=== PATIENT | male | born 1980 | race Caucasian/White ===

== ENCOUNTER 2020-06-16 16:57 | Emergency (ER) | payer SELFPAY ==
[2020-06-16 17:46] VITALS: BP 132/84; PULSE 88; RESP 18; TEMP 37; O2SAT 97; BMI 27.1
[2020-06-16 19:22] VITALS: BP 142/91; PULSE 97; RESP 18; TEMP 36.8; O2SAT 97
--- NOTE | 2020-06-16 20:29 | ED.BACK ---
HPI - Back Pain/Injury General Chief Complaint: Back Pain/Injury Stated Complaint: Fall at work 06/15 Time Seen by Provider: 06/16/20 19:46 Source: patient Mode of arrival: ambulatory History of Present Illness HPI Narrative: 40-year-old male with a past medical history of hypertension, GERD, insomnia, lumbar degenerative disc disease, hyperlipidemia, presenting to the ED complaining of low back pain radiating down right lower extremity since yesterday s/p heavy lifting at work. Denies direct trauma/falls. Reports tingling down right leg. Also reports dysuria. Denies weakness, urinary incontinence, retention, fever, chills, penile discharge, hematuria MD elicited complaint: back pain and back injury Related Data Home Medications Medication Instructions Recorded Confirmed atorvastatin 20 mg tablet 20 mg PO BEDTIME 04/12/20 04/12/20 fenofibrate 54 mg tablet 54 mg PO DAILY 04/12/20 04/12/20 hydrochlorothiazide 25 mg tablet 25 mg PO DAILY 04/12/20 04/12/20 omeprazole 20 mg capsule,delayed 20 mg PO DAILY 04/12/20 04/12/20 release trazodone 50 mg tablet 50 mg PO BEDTIME PRN 04/12/20 04/12/20 Previous Rx's Medication Instructions Recorded cyclobenzaprine 10 mg tablet 10 mg PO TID PRN 30 Days #90 tab 04/12/20 tramadol 50 mg tablet 50 mg PO BID PRN 30 Days #60 tab 04/12/20 acetaminophen [Tylenol Extra 500 mg PO Q6H PRN #20 tab 06/16/20 Strength] cefuroxime axetil 250 mg PO BID 7 Days #14 tab 06/16/20 cyclobenzaprine 5 mg PO Q8H PRN 5 Days #14 tab 06/16/20 lidocaine [Lidoderm] 1 patch TOPICAL DAILY PRN #30 ea 06/16/20 MDD remove after 12 hours naproxen 500 mg PO BID PRN 10 Days #20 tab 06/16/20 tramadol 50 mg PO Q8H PRN 3 Days #9 tab 06/16/20 Allergies Allergy/AdvReac Type Severity Reaction Status Date / Time No Known Allergies Allergy Verified 04/12/20 12:54 [No Known Allergies*] Review of Systems Review of Systems: Constitutional: No Fever, No Chills Gastrointestinal: No Nausea, No Vomiting, No Abdominal pain Genitourinary: No Urinary Incontinence/retention Musculoskeletal: +back pain, No Myalgias, No Joint Swelling Skin: No Skin Lesions, No rash Neuro: No Weakness, No Numbness, No Paresthesias Yes all other systems are reviewed and are negative FORMERLY [facility], 1928–1983 Past Medical History Attestation statement: The following information was validated with the patient. Medical History (Updated 06/16/20 @ 22:16 by JEMIMA Munoz) Essential hypertension GERD (gastroesophageal reflux disease) Insomnia Lumbar degenerative disc disease Mixed hyperlipidemia Surgical History (Updated 04/05/20 @ 14:18 by LORENA Mcneil) No pertinent past surgical history Family History Family History (Updated 04/05/20 @ 14:19 by LORENA Mcneil) Father Hypertension Mother Medical history unknown Maternal Grandmother Breast cancer Social History Social History Alcohol intake: current Alcohol intake frequency: holidays/special occasions only Smoking Status: Current every day smoker Cigarettes Per Day: 3 Smoked in Last 30 Days: Yes Use of substances other than those prescribed or required for medical reasons: No Advance Directives: No Physical Exam Vital Signs: Vital Signs: Last Vital Signs Temp 98.0 F 06/16/20 21:53 Pulse 73 06/16/20 21:53 Resp 18 06/16/20 21:53 BP 118/81 06/16/20 21:53 Pulse Ox 96 06/16/20 21:53 Body Mass Index 27.1 Const: General: cooperative and healthy appearing Orientation/consciousness: patient oriented x3 Limitations: no limitations HENMT: Head: Yes normal to inspection Ears: hearing grossly normal bilaterally General nose exam: Normal external nose present Face and sinus: Yes normal facial exam Eyes: General: appearance normal, both eyes and all related structures EOM: EOMs intact bilaterally Neck: Other: No midline cervical spinous tenderness Neck: Yes normal visual inspection Resp: Effort & Inspection: normal respiratory effort Cardio: Rate: regular rate GI: Inspection: Yes normal to inspection Back/Spine/Pelvis: Other: No midline thoracic/lumbar spinous tenderness. + right sign in lower lumbar MSK tenderness and palpable muscle spasm Skin: Rashes: no rashes Wounds: no wounds Neuro: Other: Strength intact throughout. No saddle anesthesia General: patient oriented x3, gait normal, tone normal and moves all extremities Gait exam (Neuro): Normal gait present Motor exam (neuro): 5/5 motor strength present throughout Extrem: General: Yes normal to inspection Course Course Course Narrative: -UA with trace leuks, and wbc's in clumps noted > discussed with patient, reports no concern for STI, denies discharge, sexually active with only. Will obtain CT /NG, however not treat and wait for results MDM - Back Pain/Injury MDM Narrative Medical decision making narrative: On exam VSS, NAD, no midline spinous tenderness throughout, no red flag symptoms. No saddle anesthesia. Likely MSK pain. Low concern for cauda equina/cord compression or fracture Lab Data Attestation: I reviewed the patient's lab results. Labs: Lab Results 06/16/20 Range/Units 21:07 Urine Color YELLOW Urine Appearance TURBID Urine pH 5.5 (5.0-8.0) Ur Specific Jonancy >= 1.030 H (1.005-1.025) Urine Protein NEG (NEG-TRACE) MG/DL Urine Glucose (UA) NEG (NEG) MG/DL Urine Ketones NEG (NEG) MG/DL Urine Blood NEG (NEG) Urine Nitrite NEG (NEG) Ur Leukocyte Esterase TRACE H (NEG) Urine RBC 0 (0) /HPF Urine WBC 1-4 (0-4) /HPF Urine WBC Clumps NOTED Ur Squamous Epith Cells TRACE /LPF Uric Acid Crystals TRACE /LPF Amorphous Sediment 3+ /LPF Urine Bacteria NONE /LPF Discharge Plan Discharge Clinical Impression: Strain of lumbar region, Acute UTI Patient Disposition: Home, Self-Care Instructions: Urinary Tract Infection in Men (ED), Back Pain (ED) Additional Instructions: Your pain is likely musculoskeletal Flexeril is a muscle relaxer, take at night as it makes you drowsy, do not drive, drink alcohol, or operate machinery while taking it Naproxen as an anti-inflammatory / pain medication, take with food Lidoderm patches are numbing patches, apply to painful area In addition take Tylenol at home Tramadol opiate pain medication, take only when pain is severe for next 3 days Ceftin as an antibiotic, take for your urinary tract infection If symptoms persist or worsen, pain becomes unbearable, you developed urinary retention or incontinence, or weakness return to the ED Es probable que ma dolor sea musculoesquel?chalra Flexeril es un relajante muscular, t?pollard por la noche ya que le produce somnolencia, no conduzca, no janelle alcohol ni maneje maquinaria mientras lo jennifer. Naproxeno venancio medicamento antiinflamatorio / analg?sico, nancy con alimentos. Los parches de Lidoderm son parches adormecedores, se aplican al ?pete dolorida Adem?s, tome Tylenol en casa. 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 retenci?n urinaria o incontinencia, o debilidad regrese al servicio de urgencias Prescriptions: New acetaminophen [Tylenol Extra Strength] 500 mg tablet 500 mg PO Q6H PRN (Reason: pain or fever) Qty: 20 RF: 0 lidocaine [Lidoderm] 5 % adhesive patch,medicated 1 patch topical DAILY MDD remove after 12 hours PRN (Reason: pain) Qty: 30 RF: 0 naproxen 500 mg tablet 500 mg PO BID PRN (Reason: pain) 10 Days Qty: 20 RF: 0 cyclobenzaprine 5 mg tablet 5 mg PO Q8H PRN (Reason: pain (scale score 7-10)) 5 Days Qty: 14 RF: 0 tramadol 50 mg tablet 50 mg PO Q8H PRN (Reason: pain) 3 Days Qty: 9 RF: 0 cefuroxime axetil 250 mg tablet 250 mg PO BID 7 Days Qty: 14 RF: 0 No Action hydrochlorothiazide 25 mg tablet 25 mg PO DAILY RF: 0 omeprazole 20 mg capsule,delayed release(DR/EC) 20 mg PO DAILY RF: 0 trazodone 50 mg tablet 50 mg PO BEDTIME PRNRF: 0 atorvastatin 20 mg tablet 20 mg PO BEDTIME RF: 0 fenofibrate 54 mg tablet 54 mg PO DAILY RF: 0 tramadol 50 mg tablet 50 mg PO BID PRN (Reason: pain) 30 Days Qty: 60 RF: 0 cyclobenzaprine 10 mg tablet 10 mg PO TID PRN (Reason: muscle spasm) 30 Days Qty: 90 RF: 3 Referrals: Tamia Bateman MD [Primary Care Provider] - 3 days Print Language: Citizen Of [place]
[2020-06-16 20:53] VITALS: BP 121/92; PULSE 87; RESP 18; TEMP 36.5; O2SAT 96
[2020-06-16 21:20] LABS: Glucose Urine UA NEG (NEG); Leukocyte Esterase Urine TRACE (NEG); Nitrite Urine NEG (NEG); PH 5.5 (5.0-8.0); Specific Gravity - Urine >= 1.030 (1.005-1.025); UACC Culture Trigger YES; Urine Blood NEG (NEG); Urine Ketones NEG (NEG); Urine Protein NEG (NEG-TRACE)
[2020-06-16 21:21] LABS: Appearance Urine TURBID; Color Urine YELLOW
[2020-06-16] MEDS: Lidocaine 4 % Patch ADH..PATCH 1 PATCH TRANSDERMA (21:26)
[2020-06-16] MEDS: Cyclobenzaprine HCl 10 MG TABLET PO (21:27)
[2020-06-16] MEDS: traMADoL HCL 50 MG TABLET PO (21:27)
[2020-06-16] MEDS: Acetaminophen 325 MG TABLET 650 MG PO (21:28)
[2020-06-16] MEDS: NaPROXEN 500 MG TABLET PO (21:28)
--- NOTE | 2020-06-16 21:35 | PC.NURSE ---
REQUESTED AND GIVEN APPLE JUICE WITH MEDICATIONS. ENCOURAGED TO PROVIDE URINE SPECIMEN, BUT PATIENT STATES THAT HE IS UNABLE TO PROVIDE A SPECIMEN AT THIS TIME. CALL BISHOP WITHIN REACH, INSTRUCTED TO CALL WHEN ABLE TO PROVIDE SPECIMEN.
[2020-06-16 21:48] LABS: Amorphous Sediment Urine 3+ /LPF; RBC Urine 0 /HPF (0); Squamous Epithelial Cell Urine TRACE /LPF; Uric Acid Crystals Urine TRACE /LPF; WBC Clumps Urine NOTED
[2020-06-16 21:53] VITALS: BP 118/81; PULSE 73; RESP 18; TEMP 36.7; O2SAT 96
[2020-06-18 11:32] LABS: C. trachomatis RNA TMA NOT DETECTED (NOT DETECTED); N. gonorrhoeae RNA TMA NOT DETECTED (NOT DETECTED)
== END 2020-06-16 23:11 | disposition home or self-care (01) ==
PROVIDERS: Physician Assistant; Emergency Provider Emergency Medicine; PCP Internal Medicine
DX: S39.012A Strain of muscle, fascia and tendon of lower back, initial encounter (principal); N39.0 Urinary tract infection, site not specified; X50.0XXA Overexertion from strenuous movement or load, initial encounter; X50.3XXA Overexertion from repetitive movements, initial encounter; X50.9XXA Other and unspecified overexertion or strenuous movements or postures, initial encounter; Y93.9 Activity, unspecified; Y92.9 Unspecified place or not applicable; Y99.0 Civilian activity done for income or pay; F17.200 Nicotine dependence, unspecified, uncomplicated; Z71.6 Tobacco abuse counseling; Z79.899 Other long term (current) drug therapy
CPT/HCPCS: 36415; 81001; 81003; 87086; 87491; 87591; 99284

== ENCOUNTER 2020-08-15 14:27 | Outpatient (REF) | payer OTHER, SELFPAY ==
[2020-08-15 16:17] LABS: COVID-19 Test Negative (Negative)
== END 2020-08-15 14:28 | disposition home or self-care (01) ==
LOC: HO.LAB 14:27
PROVIDERS: Visit Provider Internal Medicine
DX: Z20.822 Contact with and (suspected) exposure to COVID-19 (principal)
CPT/HCPCS: 36415; 87635; C9803

== ENCOUNTER 2020-12-05 15:39 | Emergency (ER) | payer MEDICAID, SELFPAY | END 2020-12-05 17:50 | disposition left against medical advice (07) | PROVIDERS: Emergency Provider Emergency Medicine; PCP Internal Medicine | DX: J02.9 Acute pharyngitis, unspecified (principal) ==

== ENCOUNTER 2020-12-19 15:45 | Outpatient (REF) | payer MEDICAID, SELFPAY ==
--- NOTE | ~2020-12-19 | XR_ITS ---
EXAMINATION: XR LUMBOSACRAL SPINE WITH OBLIQUES CLINICAL INFORMATION: Lower back pain. COMPARISON: Lumbar spine radiographs dated 10/05/2019. TECHNIQUE: AP, lateral, coned down, bilateral oblique views of the lumbar spine. FINDINGS: Normal vertebral body alignment. The lumbar lordosis is maintained. No acute fracture or subluxation. No loss of vertebral body height. Loss of intervertebral disc height with endplate osteophytes at L4-L5 and L5-S1. Additional multilevel anterior endplate osteophytes. Bilateral facet arthropathy at L5-S1. No lytic or blastic osseous lesion. No abnormal soft tissue calcification. XR/XR lumbar spine 4V min IMPRESSION: Multilevel degenerative disc disease, most prominent at L4-L5 and L5-S1, progressed when compared to the prior examination. New/increased bilateral facet arthropathy at L5-S1.
== END 2020-12-19 15:46 | disposition home or self-care (01) ==
LOC: HO.XRAY 15:45
PROVIDERS: PCP Nurse Practitioner Family; Visit Provider Nurse Practitioner Family
DX: M54.5 Low back pain (principal)
CPT/HCPCS: 72110

== ENCOUNTER 2021-01-19 10:50 | Outpatient (REF) | payer MEDICAID, SELFPAY ==
--- NOTE | ~2021-01-19 | XR_ITS ---
EXAMINATION: XR KNEE, RIGHT CLINICAL INFORMATION: Right knee pain. COMPARISON: None. TECHNIQUE: 4 views of the right knee. FINDINGS: Mild medial compartment joint space narrowing. Tiny medial and lateral compartment marginal osteophytes. No osseous erosion. No fracture or dislocation. No significant joint effusion. No abnormal soft tissue calcification. XR/XR knee RT 4V IMPRESSION: Mild medial and minimal lateral compartment arthrosis.
== END 2021-01-19 10:51 | disposition home or self-care (01) ==
LOC: HO.XRAY 10:50
PROVIDERS: Absent Provider Nurse Practitioner Family; PCP Nurse Practitioner Family; Visit Provider Emergency Medicine
DX: S89.91XD Unspecified injury of right lower leg, subsequent encounter (principal)
CPT/HCPCS: 73564

== ENCOUNTER → 2021-02-21 13:38 | Outpatient (BNVA) | payer MEDICAID, SELFPAY | PROVIDERS: PCP Nurse Practitioner Family; Visit Provider Physician Assistant | DX: M51.36 Other intervertebral disc degeneration, lumbar region (principal) | CPT/HCPCS: 99202 ==

== ENCOUNTER 2021-02-24 11:00 | Outpatient (RCR) | payer MEDICAID, SELFPAY | END 2021-08-14 11:45 | disposition home or self-care (01) | LOC: HO.PTCHIC 11:00 | PROVIDERS: PCP Internal Medicine Geriatric Medicine; Visit Provider Nurse Practitioner Family | DX: M54.5 Low back pain (principal) | CPT/HCPCS: 97014; 97110; 97140; 97161 ==

== ENCOUNTER → 2021-03-24 12:43 | Outpatient (REF) | payer MEDICAID, SELFPAY ==
--- NOTE | 2021-03-24 13:00 | CA_ITS ---
Transthoracic Echocardiogram Patient (Last, First, Middle): Joanne Bright A Gender: Male Date of : 1980 Age: 40 Procedure Date: 03/24/2021 Procedure Type: Transthoracic Echocardiogram Location: OP Height: 182.88 cm Weight: 97.52 kg BSA: 2.20 m2 Heart Rate: bpm BP: 140 / 90 mmHg Product Assembler: JOEY Referring MD: Luda Nair Symptoms: I38 ENDOCARDITIS Conclusions: - Normal study. Findings Left Ventricle Normal left ventricular size, thickness, systolic function, and wall motion. The visually estimated ejection fraction is between 55-60%. Diastolic function is normal for age. Right Ventricle Normal right ventricular cavity size and systolic function. Atria Both atria are normal in size. Aortic Valve Normal aortic valve structure and function. There is no aortic valve stenosis. There is no aortic valve regurgitation. Mitral Valve Normal mitral valve structure and function. There is no mitral valve regurgitation. There is no mitral valve stenosis. Pulmonic Valve The pulmonic valve is likely normal. Tricuspid Valve Normal tricuspid valve structure and function. There is trace tricuspid valve regurgitation. Normal right atrial pressure. There is no evidence of pulmonary hypertension. Great Vessels All visible segments of the aorta are normal in size. The visualized portions of the pulmonary artery and branches are normal. Venous The inferior vena cava is normal in size. Pericardium/Pleural There is no evidence of pericardial effusion. Prior Study Comparison No prior study available for comparison. Measurements 2D Linear Measurements IVSd: 0.93 0.6-0.9/0.6-1.0 cm LVIDd: 5.37 3.9-5.3/4.2-5.9 cm LVIDd Index: 2.44 2.4-3.2/2.2-3.1 cm/m2 LVIDs: 3.33 2.0-3.6 cm LVPWd: 0.89 0.7-1.1 cm Ao Root: 3.20 2.1-3.5 cm LA Diam: 3.30 2.7-3.8/3.0-4.0 cm LAIDs Index: 1.50 1.5-2.3 cm/m2 LV Mass: 224.87 67-162/88-224 g LV Mass Index: 102.21 43-95/49-115 g/m2 LVOT Diam: 2.10 3.0+(-)1.3 cm 2D Systolic Function EF 4C: 53.50 >55% EF 2C: 58.90 >55% EF BiP: 55.80 >55% Mitral Valve MV Pk E: 0.74 MV PK A: 0.55 MV Decel Time: 163.00 E/A: 1.30 E'Lateral: 6.09 E'Medial: 7.51 E/E' Med: 9.90 E/E' Lat: 12.20 PHT: 48.00 MVA PHT: 4.58 Decel Moore: 4.55 Aortic Valve AoV Pk Pavan: 1.41 AoV Mn Pavan: 0.99 AoV VTI: 0.25 AoV Pk Grad: 8.00 Aov Mn Grad: 4.00 LOURDES Cont.VTI: 2.28 LVOT LVOT Pk Pavan: 0.90 LVOT Mn Pavan: 0.63 LVOT VTI: 0.17 LVOT Pk Grad: 3.00 LVOT Mn Grad: 2.00 LVOT Diam: 2.10 LVOT Area: 3.46 Diastolic Function MV Pk E: 0.74 MV Pk A: 0.55 E/A: 1.30 E'Medial: 7.51 E/E' Med: 9.90 E' Laterial: 6.09 E/E' Lat: 12.20 Right Ventricle TAPSE (mm): 1.99 Tricuspid Valve TR Pk Pavan: 2.33 TR Pk Grad: 22.00 RA Press: 8.00 RVSP: 30.00 Great Vessels Aorta Ao Root-2D: 3.20 2.0-3.7 cm Ao Asc: 2.60 2.1-3.4 cm Ao Arch: 2.60 Updated in Other Vendor System with Status of Final Josh Corona MD electronically signed on 03/29/2021 10:34:41 AM with status of Final
== END ==
LOC: HO.CARD 12:43
PROVIDERS: Visit Provider Nurse Practitioner Family
DX: I38 Endocarditis, valve unspecified (principal)
CPT/HCPCS: 93306

== ENCOUNTER → 2021-04-19 09:08 | Outpatient (BNVA) | payer MEDICAID, SELFPAY | PROVIDERS: PCP Internal Medicine; Visit Provider Nurse Practitioner Family | DX: M51.36 Other intervertebral disc degeneration, lumbar region (principal); M54.16 Radiculopathy, lumbar region | CPT/HCPCS: 99202 ==

== ENCOUNTER 2021-05-12 07:34 | Outpatient (REF) | payer MEDICAID, SELFPAY | END 2021-05-12 07:35 | disposition home or self-care (01) | LOC: HO.HOSX 07:34 | PROVIDERS: Visit Provider Physician Assistant | DX: Z13.89 Encounter for screening for other disorder (principal) ==

== ENCOUNTER 2021-05-15 14:52 | Outpatient (REF) | payer MEDICAID, SELFPAY ==
--- NOTE | ~2021-05-15 | MR_ITS ---
EXAMINATION: MR LUMBAR SPINE WITHOUT CONTRAST CLINICAL INFORMATION: Radiculopathy of the lumbar region. COMPARISON: Lumbar spine radiographs from 12/19/2020. TECHNIQUE: MRI of the lumbar spine was obtained using routine sequences without contrast. FINDINGS: Minimal degenerative retrolistheses of L4 and L5 and L5 on S1. Otherwise, normal anatomic alignment. Moderate degenerative disc disease at L4-L5 and L5-S1. Mild degenerative disc disease at L2-L3. Associated mixed Modic type discogenic endplate changes including minimal Modic type I discogenic edema at L2-L3 and L4-L5. No additional suspicious marrow edema. The vertebral body heights are largely maintained. The conus medullaris terminates at the level of L1. The distal spinal cord is normal in appearance. No significant abnormalities of the paraspinal musculature. Limited evaluation of the intra-abdominal structures without significant abnormalities. The abdominal aorta is of normal contour and caliber. AXIAL SPINAL LEVELS: L1-L2: Normal annular contour. There is no facet joint arthropathy. There is no neural foraminal stenosis. There is no spinal canal stenosis. L2-L3: Mild diffuse disc bulge. There is mild left and no right facet joint arthropathy. There is no neural foraminal stenosis. There is no spinal canal stenosis. L3-L4: Normal annular contour. There is mild bilateral facet joint arthropathy. There is no neural foraminal stenosis. There is no spinal canal stenosis. L4-L5: Moderate diffuse disc bulge. There is moderate bilateral facet joint arthropathy. There is moderate right and mild left neural foraminal stenosis. There is stenosis of the subarticular zones with mild spinal canal stenosis centrally. L5-S1: Moderate diffuse disc bulge with superimposed small central disc protrusion. There is mild bilateral facet joint arthropathy. There is moderate left and mild right neural foraminal stenosis. There is mild narrowing of the subarticular zones with no overt spinal canal stenosis centrally. MR/MR lumbar spine wo con IMPRESSION: Moderate multilevel degenerative spondyloarthropathy of the lumbar spine as described in detail above. Most notably, there is mild spinal canal stenosis centrally at L4-L5. Narrowing/stenoses of the subarticular zones along with moderate neural foraminal stenoses at L4-L5 and L5-S1.
== END 2021-05-15 14:53 | disposition home or self-care (01) ==
LOC: HO.MRI 14:52
PROVIDERS: Visit Provider Nurse Practitioner Family
DX: M54.16 Radiculopathy, lumbar region (principal); M51.36 Other intervertebral disc degeneration, lumbar region
CPT/HCPCS: 72148

== ENCOUNTER → 2021-07-12 08:00 | Outpatient (BNVA) | payer MEDICAID, SELFPAY | PROVIDERS: PCP Internal Medicine; Visit Provider Nurse Practitioner Family | DX: M51.36 Other intervertebral disc degeneration, lumbar region (principal); M53.3 Sacrococcygeal disorders, not elsewhere classified; M47.816 Spondylosis without myelopathy or radiculopathy, lumbar region | CPT/HCPCS: 99212 ==